=== PATIENT | female | born 1985 | race African-American/Black ===

== ENCOUNTER 2019-07-01 11:33 | Emergency (ER) | payer OTHER ==
[~2019-07-01] VITALS: Ht 162.6 cm; Wt 85.3 kg
[~2019-07-01 11:33] MED LIST: BIRTH CONTROL; CIPROFLOXACIN500 M1 PO; DOXYCYCLINE 10100 MG PO; FLAGYL500 MG PO; IBUPROFEN 600600 M1 PO; NORCO 5-325 TA1 EACH PO; ULTRAM 50MG TAB50 MG PO
[2019-07-01] MEDS ORDERED: ZITHROMAX500 MG PO (11:59)
[2019-07-01 12:16] VITALS: BP 122/81
== END 2019-07-01 12:17 | disposition home or self-care (01) ==
LOC: ER 11:33
DX: J02.0 Streptococcal pharyngitis (principal); J45.909 Unspecified asthma, uncomplicated; Z88.0 Allergy status to penicillin; Z88.8 Allergy status to other drugs, medicaments and biological substances